=== PATIENT | male | born 1970 | race Two or more races ===

== ENCOUNTER 2023-08-05 08:37 | Outpatient (CLI) | payer OTHER | END 2023-08-05 08:46 | disposition home or self-care (01) | LOC: RAD 08:37 | PROVIDERS: ATTEND Internal Medicine Rheumatology | DX: M15.0 Primary generalized (osteo)arthritis (principal); M65.871 Other synovitis and tenosynovitis, right ankle and foot; M65.872 Other synovitis and tenosynovitis, left ankle and foot ==